=== PATIENT | male | born 1990 | race Caucasian/White ===

== ENCOUNTER 2017-06-27 16:03 | Emergency (ER) | payer MEDICAID ==
[~2017-06-27] VITALS: Ht 177.8 cm; Wt 77.5 kg
[2017-06-27 16:14] VITALS: Ht 177.8 cm; Wt 77.5 kg
[2017-06-27] MEDS ORDERED: IBUPROFEN 600 MG TAB PO ONE (17:00)
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
[2017-06-27] MEDS ORDERED: IBUP-1542 PO (19:16)
[2017-06-27 19:28] VITALS: BP 133/89; PULSE 72; RESP 16
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
== END 2017-06-27 19:29 | disposition home or self-care (01) ==
LOC: FTE 16:03
DX: S89.91XA Unspecified injury of right lower leg, initial encounter (principal); S29.9XXA Unspecified injury of thorax, initial encounter; V49.49XA Driver injured in collision with other motor vehicles in traffic accident, initial encounter
CPT/HCPCS: 71010; 72040; 73562; 73590; Z7502; Z7610